=== PATIENT | female | born 1945 | race Caucasian/White ===

== ENCOUNTER 2017-04-17 09:04 | Emergency (ER) | payer OTHER ==
[~2017-04-17] VITALS: Ht 157.5 cm; Wt 81.2 kg
[2017-04-17 09:13] VITALS: Ht 157.5 cm; Wt 81.2 kg
[2017-04-17 12:03] LABS: UA SPECIFIC GRAVITY >=1.030 (1.005-1.035); microscopic required? YES; urine erythrocyte 1+ (NEGATIVE)
[2017-04-17 12:15] VITALS: BP 141/74
== END 2017-04-17 12:38 | disposition left against medical advice (07) ==
LOC: ED 09:04
PROVIDERS: Emergency Medicine
DX: J11.1 Influenza due to unidentified influenza virus with other respiratory manifestations (principal); I10 Essential (primary) hypertension
CPT/HCPCS: 36415; 87804